=== PATIENT | female | born 1995 | race Caucasian/White ===

== ENCOUNTER 2020-06-03 09:49 | Emergency (ER) | payer SELFPAY ==
[2020-06-03 09:51] VITALS: BP 144/88; PULSE 88; RESP 18; TEMP 36.2; O2SAT 96; BMI 28.1
--- NOTE | 2020-06-03 09:51 | W.ED.ABDPA2 ---
HPI - Abdominal Pain General: Stated Complaint: Abd/back/irregular periods Time Seen by Provider: 06/03/20 09:51 Coding Level of Care Code ED Glove Wrapper for Dedrick Mercado
--- NOTE | 2020-06-03 10:01 | ED_ITS ---
HPI - Female Genitourinary General: Chief complaint: Vaginal Bleeding Stated complaint: Abd/back/irregular periods Time Seen by Provider: 06/03/20 09:51 Source: patient Mode of arrival: ambulatory Limitations: no limitations History of Present Illness: HPI Narrative: Patient is a 24-year-old female who presents to ED today with a main complaint of irregular menstrual cycles and cramping. Patient tells me she has blood sporadically over the past 3 to 4 months. She tells me over the past few days she has had severe intermittent cramping. She is not complaining of particularly heavy bleeding. She is not having any vaginal discharge or vaginal odor. No new sexual partners or concern for STDs. Denies dyspareunia. She thought she may be developing a UTI as she was having some lower back pain but denies dysuria, frequency, urgency. Patient states she was worried because her mother had uterus problems including what sounds like a uterine prolapse and ended up undergoing a complete hysterectomy. Patient denies chance of currently. She is not running fevers. She currently states she is not having pain. MD elicited complaint: vaginal bleeding, pelvic pain and other (irregular menses) Onset (ago): week(s) Female Urogenital Radiation: Non-Radiating Quality of pain: cramping Consistency: intermittent Vaginal discharge: none Vaginal bleeding: moderate Exacerbating factors: none Relieving factors: none Associated symptoms: Deny abdominal pain, headache(s), nausea or vaginal discharge Treatment prior to arrival: none Sexual activity: Yes Patient : No Review of Systems Const: Denies: fever(s), chills, body aches or fatigue ENMT: Denies: throat pain or odynophagia Card: Denies: chest pain Resp: Denies: dyspnea GI: Denies: abdominal pain, nausea, vomiting, diarrhea or change in stool character : Reports: vaginal bleeding (none currently), dysmenorrhea, irregular period, metrorrhagia and pelvic pain; Denies: flank pain, difficulty voiding, dysuria, urinary frequency, urinary urgency, urinary hesitancy, hematuria, vaginal odor, vaginal discharge or dyspareunia Musc: Reports: back pain; Denies: neck pain, extremity pain, extremity swelling, joint pain or joint swelling Skin/Breast: Denies: rash Neuro: Denies: headache(s), numbness in extremities, weakness in extremities or sensory changes Physical Exam Const: COMMON NORMALS: no acute distress, average body habitus, patient oriented x3, no limitations, healthy appearing, alert and well nourished Resp: COMMON NORMALS: normal respiratory effort and clear to auscultation bilaterally AUSCULTATION: clear to auscultation bilaterally Cardio: COMMON NORMALS: regular rate and regular rhythm RATE: regular rate RHYTHM: regular rhythm GI: COMMON NORMALS: Normal to inspection, nondistended, normoactive bowel sounds present, Soft to palpation, non-tender, No hepatosplenomegaly present and no masses PALPATION: Yes Soft to palpation and Yes No hepatosplenomegaly present : COMMON NORMALS: Yes no CVA tenderness BLADDER/KIDNEY EXAM: Yes no CVA tenderness OB/EXTERNAL & SPECULUM: Deferred OB/external & speculum exam Back/Pelvis: COMMON NORMALS: no CVA tenderness Neuro: COMMON NORMALS: patient oriented x3 SENSORIUM/ORIENTATION: Yes alert Skin: COMMON NORMALS: no rashes or lesions noted GENERAL SKIN EXAM: no rashes or lesions noted Course Vital Signs: Vital signs: Vital Signs Temperature 97.2 F L 06/03/20 09:51 Pulse Rate 62 06/03/20 11:24 Respiratory Rate 16 06/03/20 11:24 Blood Pressure 114/79 06/03/20 11:24 Pulse Oximetry 96 06/03/20 11:24 MDM - Female MDM Narrative: Medical decision making narrative: Patient's work-up here is benign. She has no acute gynecological emergency today. Pelvic exam deferred- unlikely this would overall change my management today. She is not complaining of pain currently. She has no vaginal discharge. No dyspareunia. I will place information with case management for an appointment with women's health in regards to her irregular bleeding. Return to ED precautions given. Lab Data: Labs: Lab Results 06/03/20 06/03/20 06/03/20 Range/Units 10:06 10:06 10:06 WBC 7.3 (4.0-10.0) 10^3/ uL RBC 4.80 (4.1-5.3) 10^6/u L Hgb 14.0 (11.5-15.3) g/dL Hct 42.5 (37.0-47.0) % MCV 88.5 (81-99) fL MCH 29.2 (28.0-34.0) pg MCHC 32.9 (30.0-36.0) g/dL RDW 12.4 (12.1-15.1) % Plt Count 239 (130-400) 10^3/c mm MPV 9.7 (7.4-10.4) fL Neut % (Auto) 66.3 % Lymph % (Auto) 23.9 % Mathews % (Auto) 6.7 % Eos % (Auto) 2.3 % Baso % (Auto) 0.5 % Neut # (Auto) 4.82 (1.8-7.7) 10^3/u L Lymph # (Auto) 1.7 (0.8-4.8) 10^3/u L Mathews # (Auto) 0.5 (0.2-0.9) 10^3/u L Eos # (Auto) 0.2 (0.0-0.8) 10^3/u L Baso # (Auto) 0.0 (0.0-0.1) 10^3/u L Nucleated RBC % (a uto) 0 % Nucleated RBCs # 0.0 /100WBC Sodium 140 (136-145) mmol/L Potassium 3.8 (3.5-5.1) mmol/L Chloride 107 (98-107) mmol/L Carbon Dioxide 22 (22-29) mmol/L Anion Gap 14.8 (5-19) BUN 5 L (6-20) mg/dL Creatinine 0.5 (0.5-0.9) mg/dL GFR Calculation 149.1 H (90-130) mL/min Glucose 115 (65-115) mg/dL Calculated Osmolal ity 288 (285-295) mOsm/k g Calcium 9.2 (8.5-10.5) mg/dL Total Bilirubin 0.4 (0.15-1.2) mg/dL AST 15 (0-32) U/L ALT 18 (0-33) U/L Alkaline Phosphata se 78 (35-105) IU/L Total Protein 7.4 (6.6-8.7) g/dL Albumin 4.3 (3.5-5.2) g/dL Globulin 3.1 (1.3-4.6) g/dL TSH 1.88 (0.27-4.20) uIU/ mL HCG, Qual Negative (Negative) Urine Color (Yellow) Urine Appearance (CLEAR) Urine pH (5-7) Ur Specific Gravit y (1.005-1.030) Urine Protein (Negative) Urine Glucose (UA) (Normal) Urine Ketones (Negative) Urine Blood (Negative) Urine Nitrate (Negative) Urine Bilirubin (Negative) Urine Urobilinogen (Negative) mg/dL Ur Leukocyte Annamarie ase (Negative) 06/03/20 Range/Units 10:06 WBC (4.0-10.0) 10^3/ uL RBC (4.1-5.3) 10^6/u L Hgb (11.5-15.3) g/dL Hct (37.0-47.0) % MCV (81-99) fL MCH (28.0-34.0) pg MCHC (30.0-36.0) g/dL RDW (12.1-15.1) % Plt Count (130-400) 10^3/c mm MPV (7.4-10.4) fL Neut % (Auto) % Lymph % (Auto) % Mathews % (Auto) % Eos % (Auto) % Baso % (Auto) % Neut # (Auto) (1.8-7.7) 10^3/u L Lymph # (Auto) (0.8-4.8) 10^3/u L Mathews # (Auto) (0.2-0.9) 10^3/u L Eos # (Auto) (0.0-0.8) 10^3/u L Baso # (Auto) (0.0-0.1) 10^3/u L Nucleated RBC % (a uto) % Nucleated RBCs # /100WBC Sodium (136-145) mmol/L Potassium (3.5-5.1) mmol/L Chloride (98-107) mmol/L Carbon Dioxide (22-29) mmol/L Anion Gap (5-19) BUN (6-20) mg/dL Creatinine (0.5-0.9) mg/dL GFR Calculation (90-130) mL/min Glucose (65-115) mg/dL Calculated Osmolal ity (285-295) mOsm/k g Calcium (8.5-10.5) mg/dL Total Bilirubin (0.15-1.2) mg/dL AST (0-32) U/L ALT (0-33) U/L Alkaline Phosphata se (35-105) IU/L Total Protein (6.6-8.7) g/dL Albumin (3.5-5.2) g/dL Globulin (1.3-4.6) g/dL TSH (0.27-4.20) uIU/ mL HCG, Qual (Negative) Urine Color Yellow (Yellow) Urine Appearance Clear (CLEAR) Urine pH 6 (5-7) Ur Specific Gravit y 1.005 (1.005-1.030) Urine Protein Neg (Negative) Urine Glucose (UA) Norm (Normal) Urine Ketones Negative (Negative) Urine Blood Neg (Negative) Urine Nitrate Negative (Negative) Urine Bilirubin Neg (Negative) Urine Urobilinogen Norm (Negative) mg/dL Ur Leukocyte Annamarie ase Negative (Negative) Imaging Data: US pelvis: Radiologist's impression: [place] [id number] Ultrasound Report Signed Patient: Pam Batista Unit #: [id number] : 1995 Age/Sex: 24 / F ADM Date: 06/03/20 Loc: ER Room/Bed: Attending Dr: Ordering Provider/Ordering MD: Shalini De Souza Date of Service: 06/03/20 Procedure(s): US transvaginal [id number] Accession Number(s): [id number] Report Number: [id number] WS: [id number] ULTRASOUND PELVIS TECHNIQUE: Transvaginal. CLINICAL INFORMATION: irregular bleeding/cramping LMP: : No. COMPARISON: None. FINDINGS: Uterus Orientation: Anteverted. Size: 8.3 x 4.3 x 5.5 cm Masses: None. Cervix: Normal. Endometrium: Normal. Endometrium thickness: 1.2 cm. Adnexa: Left ovary not visualized Right ovary size: 3.8 x 1.6 x 2.1 cm. Left ovary size: Left ovary not visualized Free fluid: Present Other findings: None. US/US transvaginal [id number] IMPRESSION: 1. Normal uterus and endometrium. Endometrium measures 12 mm. 2. Normal right ovary. 3. Left ovary is not visualized. 4. Small amount of free fluid in the cul-de-sac. Dictated By: Nathan Donato MD Signed By: Nathan Donato MD Signed Date/Time: 1124 DD/ 1121 Discharge Plan Discharge Patient Disposition: Home Clinical Impression: Irregular menstrual bleeding Condition: Stable Discharge Orders: Discharge ED (Routine); Ordered 06/03/20 Ordered By: Shalini De Souza Patient Instructions: Menorrhagia (ED) Activity Restrictions/Additional Instructions: As discussed case management should contact you in the next few days to set you up with an appointment for women's health in regards to your irregular menstrual cycles. You may return to the emergency department for severe abdominal/pelvic pain, vaginal discharge/odor, fevers, or any other concerns you may have. Coding Level of Care Code ED Nuclear Medicine Technologist for Dedrick Fwd Exam Detailed
[2020-06-03 10:14] LABS: Basophils % 0.5 %; Eosinophils # 0.2 10^3/uL (0.0-0.8); Eosinophils % 2.3 %; Hematocrit 42.5 % (37.0-47.0); Lymphocytes # 1.7 10^3/uL (0.8-4.8); Lymphocytes % 23.9 %; Mean Corpuscular HGB Conc 32.9 g/dL (30.0-36.0); Mean Corpuscular Hemoglobin 29.2 pg (28.0-34.0); Mean Corpuscular Volume 88.5 fL (81-99); Mean Platelet Volume 9.7 fL (7.4-10.4); Monocytes # 0.5 10^3/uL (0.2-0.9); Monocytes % 6.7 %; Neutrophils # 4.82 10^3/uL (1.8-7.7); Neutrophils % 66.3 %; Nucleated Red Blood Cells % 0 %; Platelet Count 239 10^3/cmm (130-400); Red Cell Distribution Width 12.4 % (12.1-15.1); White Blood Count 7.3 10^3/uL (4.0-10.0)
[2020-06-03 10:17] LABS: Add Urine Microscopic? NO
[2020-06-03 10:24] LABS: HCG, Serum Qual Negative (Negative)
[2020-06-03 10:32] LABS: Bilirubin Urine Neg (Negative); Blood Urine Neg (Negative); Glucose Urine UA Norm (Normal); Ketones Urine Negative (Negative); Leukocyte Esterase Urine Negative (Negative); Nitrate Urine Negative (Negative); Protein Urine Neg (Negative); Specific Gravity, Urine 1.005 (1.005-1.030); Urine Appearance Clear (CLEAR); Urine Color Yellow (Yellow); Urobilinogen Urine Norm (Negative); pH Urine 6 (5-7)
[2020-06-03 11:02] LABS: Alanine Aminotransferase 18 U/L (0-33); Albumin Level 4.3 g/dL (3.5-5.2); Alkaline Phosphatase 78 IU/L (35-105); Anion Gap 14.8 (5-19); Aspartate Amino Transferase 15 U/L (0-32); Blood Urea Nitrogen 5 mg/dL (6-20); Calcium 9.2 mg/dL (8.5-10.5); Carbon Dioxide 22 mmol/L (22-29); Chloride 107 mmol/L (98-107); Globulin 3.1 g/dL (1.3-4.6); Glomerular Filtration Rate 149.1 mL/min (90-130); Glucose 115 mg/dL (65-115); Osmolality Calculated 288 mOsm/kg (285-295); Potassium 3.8 mmol/L (3.5-5.1); Sodium 140 mmol/L (136-145); Thyroid Stimulating Hormone 1.88 uIU/mL (0.27-4.20); Total Bilirubin 0.4 mg/dL (0.15-1.2); Total Protein 7.4 g/dL (6.6-8.7)
[2020-06-03 11:24] VITALS: BP 114/79; PULSE 62; RESP 16; O2SAT 96
--- NOTE | 2020-06-03 12:15 | DCPLANNER ---
relocation manager had message to schedule a follow up appointment for patient with [facility]. relocation manager called the [facility], spoke with Magdalene, gave clinic patients information. relocation manager was told that patients information would be printed and reviewed. Clinic will call patient with appointment information.
--- NOTE | 2020-06-03 14:09 | DCPLANNER ---
repair manager had message to schedule a follow up appointment for patient with [facility]. repair manager called the [facility], spoke with Magdalene, gave clinic patients information. repair manager was told that patients information would be printed and reviewed. Clinic will call patient with appointment information.
--- NOTE | 2020-06-04 07:28 | DCPLANNER ---
Patient has a follow up appointment scheduled for Monday, June 08, [address] at 2:[address] Blevins. Clinic will call patient with appointment information.
--- NOTE | 2020-07-08 07:51 | DCPLANNER ---
Patient had a follow up appointment scheduled for 06.08.[address] Blevins with [facility] - patient did not attend appointment.
== END 2020-06-03 11:24 | disposition home or self-care (01) ==
LOC: ER 12:24
PROVIDERS: Emergency Provider Physician Assistant
DX: N92.6 Irregular menstruation, unspecified (principal)
CPT/HCPCS: 12345; 76830; 80053; 81003; 84443; 84703; 85025; 99281; 99283

== ENCOUNTER → 2020-07-13 10:07 | Outpatient (BNVA) | payer SELFPAY | PROVIDERS: Visit Provider Obstetrics & Gynecology | DX: Z12.4 Encounter for screening for malignant neoplasm of cervix (principal); Z11.3 Encounter for screening for infections with a predominantly sexual mode of transmission; N89.8 Other specified noninflammatory disorders of vagina; N92.6 Irregular menstruation, unspecified | CPT/HCPCS: 86803; 87481; 87491; 87512; 87591; 87798; 87799; 87806; 88175 ==

== ENCOUNTER → 2022-01-11 12:20 | Outpatient (BNVA) | payer BC, SELFPAY | PROVIDERS: Visit Provider Emergency Medicine | DX: M79.642 Pain in left hand (principal); M87.242 Osteonecrosis due to previous trauma, left hand | CPT/HCPCS: 73130 ==

== ENCOUNTER → 2022-01-17 14:54 | Outpatient (BNVA) | payer BC, SELFPAY | PROVIDERS: Visit Provider Student in an Organized Health Care Education/Training Program | DX: S62.002K Unspecified fracture of navicular [scaphoid] bone of left wrist, subsequent encounter for fracture with nonunion (principal); S69.92XD Unspecified injury of left wrist, hand and finger(s), subsequent encounter; W19.XXXD Unspecified fall, subsequent encounter | CPT/HCPCS: 73110 ==

== ENCOUNTER 2022-01-17 16:17 | Outpatient (CLI) | payer BC, SELFPAY | END 2022-01-17 16:18 | disposition home or self-care (01) | LOC: SPT 16:18 | PROVIDERS: Visit Provider Student in an Organized Health Care Education/Training Program | DX: M25.532 Pain in left wrist (principal) | CPT/HCPCS: 97760; L3908 ==

== ENCOUNTER → 2022-02-03 15:42 | Outpatient (BNVA) | payer BC, SELFPAY | PROVIDERS: Visit Provider Obstetrics & Gynecology | DX: E28.2 Polycystic ovarian syndrome (principal) | CPT/HCPCS: 82627; 82670; 84144; 84403; 84443 ==

== ENCOUNTER → 2022-02-20 10:11 | Outpatient (BNVA) | payer BC, SELFPAY | PROVIDERS: Visit Provider Obstetrics & Gynecology | DX: N83.201 Unspecified ovarian cyst, right side (principal); N83.202 Unspecified ovarian cyst, left side | CPT/HCPCS: 76830 ==

== ENCOUNTER 2022-03-12 02:47 | Emergency (ER) | payer BC, SELFPAY ==
[2022-03-12 02:53] VITALS: BP 108/71; PULSE 93; RESP 17; TEMP 38.4; O2SAT 96; BMI 22.7
[2022-03-12] MEDS: ibuprofen 600 mg Tablet PO (03:07)
--- NOTE | 2022-03-12 03:19 | XRR_ITS ---
PROCEDURE INFORMATION: Exam: XR Chest Exam date and time: 03/12/2022 4:28 AM Age: 26 years old Clinical indication: Fever and shortness of breath; Additional info: Cough SOB fever TECHNIQUE: Imaging protocol: Radiologic exam of the chest. Views: 1 view. COMPARISON: No relevant prior studies available. FINDINGS: Lungs: No CHF/pulmonary edema. Visible lungs appear essentially clear. Pleural spaces: No visible pneumothorax. No definite pleural fluid. Heart/Mediastinum: Heart size is within normal limits. Bones/joints: No significant acute finding. XR/XR chest 1V portable [id number] IMPRESSION: 1. Essentially unremarkable single view chest. 2. Other findings discussed above.
[2022-03-12] MEDS: dexamethasone 4 mg Tablet 10 MG PO (03:26)
--- NOTE | 2022-03-12 03:27 | W.ED.FEVER ---
HPI - Fever General: Chief Complaint: Fever Stated Complaint: fever, cough Time Seen by Provider: 03/12/22 03:00 Source: patient History of Present Illness: 26-year-old mother have a child sick with respiratory illness checks in with similar symptoms. She has had fever, cough, some shortness of breath, and sore throat for the last 3 to 4 days. 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 Surgical History History of 2018 Family History Denies family history of Colon cancer Ovarian cancer Diabetes Heart disease Hypercholesteremia Breast cancer Family history of thyroid problem Hypertension Uterine cancer Thyroid disease Stroke Social History Smoking and tobacco status: current every day smoker Female Reproductive History: Date of last menstrual period: 02/20/22 Physical Exam Const: COMMON NORMALS: no acute distress GENERAL APPEARANCE: cooperative and ill appearing (mildly) HENMT: COMMON NORMALS: normocephalic, atraumatic, TM's normal bilaterally and Normal external nose present HEAD & SCALP: normocephalic and atraumatic FACE & SINUS: normal facial exam and face symmetric NOSE: Normal external nose present and Nasal discharge present clear TYMPANIC MEMBRANE: TM's normal bilaterally THROAT: posterior oropharynx normal Eye: COMMON NORMALS: Equal, round and reactive pupils present and EOMs intact bilaterally PUPIL: Yes Equal, round and reactive pupils present Neck/C-Spine: GENERAL: Yes trachea midline Chest: CHEST: Yes Symmetrical chest wall rise Resp: COMMON NORMALS: normal respiratory effort, No use of accessory muscles and clear to auscultation bilaterally AUSCULTATION: clear to auscultation bilaterally Cardio: COMMON NORMALS: regular rate and regular rhythm RATE: regular rate RHYTHM: regular rhythm GI: COMMON NORMALS: Normal to inspection, nondistended, normoactive bowel sounds present, Soft to palpation and non-tender PALPATION: Yes Soft to palpation Extremity: COMMON NORMALS: no pedal edema Neuro: STEPHENIE COMA SCALE: document GCS findings [place] coma scale eye opening: Spontaneous [place] coma scale verbal response: Orientated [place] coma scale motor response: Obey commands Stephenie coma scale total score: 15 Psych: COMMON NORMALS: mental status grossly normal and cooperative Course Vital Signs: Vital signs: Vital Signs Temperature 99.1 F 03/12/22 04:21 Pulse Rate 79 03/12/22 04:21 Respiratory Rate 16 03/12/22 04:21 Blood Pressure 91/64 03/12/22 04:21 Pulse Oximetry 96 03/12/22 04:21 MDM - Fever Medical Decision Making COVID-negative. No infiltrate on chest x-ray. She is received dexamethasone here ibuprofen for fever. She will be allowed discharge. Lab Data Laboratory Results SARS-CoV-2 Ag (Rapid) negative (Negative) 03/12/22 03:18 Discharge Plan Discharge Patient Disposition: Home Clinical Impression: Viral upper respiratory illness Condition: Stable Prescriptions: No Action azithromycin 250 mg tablet See Rx Instructions PO .COMPLEX Qty: 6 0RF Rx Instructions: take 500 mg today (day 1), then 250 mg for 4 days (days 2-5) PO metronidazole 500 mg tablet 500 mg PO BID Qty: 14 0RF fluconazole [Diflucan] 150 mg tablet 150 mg PO .One time dose Qty: 1 0RF Discharge Orders: Discharge ED (Routine); Ordered 03/12/22 Ordered By: Prasad Blood Referrals: Georgia Moreno MD [Primary Care Provider] - Patient Instructions: Upper Respiratory Infection (ED) Activity Restrictions/Additional Instructions: Return for significant shortness of breath, worsening chest discomfort, inability to control fever, vomiting liquids or medications, other concerning symptoms. Steroid should begin to help in 6 to 12 hours, and last several days. Check your temperature often, and controlled with medication. Hydrate. Humidified air may help. Follow-up with your doctor this coming week. Coding Level of Care Code ED Sports Book Server for Chg Fwd Exam Comprehensive
[2022-03-12 03:43] LABS: SARS Covid-2 Antigen negative (Negative)
[2022-03-12 04:21] VITALS: BP 91/64; PULSE 79; RESP 16; TEMP 37.3; O2SAT 96
== END 2022-03-12 04:23 | disposition home or self-care (01) ==
PROVIDERS: Emergency Provider Emergency Medicine; PCP Obstetrics & Gynecology
DX: J06.9 Acute upper respiratory infection, unspecified (principal); F17.210 Nicotine dependence, cigarettes, uncomplicated
CPT/HCPCS: 71045; 87426; 99283; J8540

== ENCOUNTER → 2022-07-31 12:22 | Outpatient (BNVA) | payer OTHER, SELFPAY | PROVIDERS: PCP Obstetrics & Gynecology; Visit Provider Nurse Practitioner Family | DX: S69.91XA Unspecified injury of right wrist, hand and finger(s), initial encounter (principal); X58.XXXA Exposure to other specified factors, initial encounter | CPT/HCPCS: 73110 ==

== ENCOUNTER → 2022-12-26 11:49 | Outpatient (BNVA) | payer OTHER, SELFPAY | PROVIDERS: PCP Obstetrics & Gynecology; Visit Provider Registered Nurse Neonatal Intensive Care | DX: M25.531 Pain in right wrist (principal) | CPT/HCPCS: 73110 ==